=== PATIENT | male | born 1950 | race Caucasian/White ===

== ENCOUNTER → 2017-01-04 | Day surgery (SDC) | payer BC ==
[2016-12-21 14:45] VITALS: BMI 31.0
--- NOTE | 2016-12-21 15:13 | PAT Medication Instructions ---
Service Date Dec 21, 2016. Current Home Medication List Acetaminophen (Tylenol), 2 TAB PO Q6 PRN for Pain Cholecalciferol (Vitamin D3), 1 TAB PO QAM Multivitamin (Multivitamin), 1 TAB PO QAM Triamcinolone Acet 0.5% (Triamcinolone Acet 0.5%), Unknown Dose TOP DAILY Triamcinolone Acet 0.5% (Aristocort 0.5%), Unknown Dose TOP DAILY Medication Instructions For Your Scheduled Surgery - Hold the following medications 24 hours prior to surgery: Triamcinolone Acet 0.5% (Triamcinolone Acet 0.5%), Unknown Dose TOP DAILY Triamcinolone Acet 0.5% (Aristocort 0.5%), Unknown Dose TOP DAILY - Hold the following medications the morning of surgery: Cholecalciferol (Vitamin D3), 1 TAB PO QAM Multivitamin (Multivitamin), 1 TAB PO QAM - Take the following medications the morning of surgery with a sip of water: Acetaminophen (Tylenol), 2 TAB PO Q6 PRN for Pain (if needed) - Take the following medications as scheduled the night before surgery: Acetaminophen (Tylenol), 2 TAB PO Q6 PRN for Pain (if needed) If you have any questions please call us at [phone] or [phone] or [phone]
--- NOTE | 2016-12-21 16:00 | DIAGNOSTIC IMAGING REPORT ---
TWO VIEW CHEST CLINICAL HISTORY: Preoperative examination. FINDINGS: PA and lateral chest radiographs are compared to study dated 09/20/2015. The heart is top normal in size and there is atherosclerotic calcification of the thoracic aorta. The lungs and pleural spaces are clear. There is no pneumothorax. The bony thorax appears intact. Degenerative change is noted in the thoracic spine. IMPRESSION: No active disease in the chest. Electronically signed by: Ephraim Amezquita M.D. 12/21/2016 3:59 PM Dictated Date/Time: 12/21/2016 3:58 PM
[2016-12-21 16:01] LABS: BASO % 0.4 %; BASO ABS # 0.03 K/uL (0-0.2); COMPLETE YES; EOS % 3.7 %; HEMATOCRIT 42.4 % (42-52); IG% 0.3 %; LYMPH % 24.8 %; MEAN CELL VOLUME 88.3 fL (80-100); MEAN CORPUSCULAR HEMOGLOBIN 30.6 pg (25-34); MEAN CORPUSCULAR HGB CONC 34.7 g/dl (32-36); MEAN PLATELET VOLUME 9.3 fL (7.4-10.4); MONO % 9.1 %; NEUT % 61.7 %; PLATELET COUNT 270 K/uL (130-400); WHITE BLOOD COUNT 7.25 K/uL (4.8-10.8)
[2016-12-21 16:09] LABS: BUN/CREATININE RATIO 11.3 (10-20); CALCIUM 9.5 mg/dl (8.5-10.1); CREATININE 1.3 mg/dl (0.60-1.40); POTASSIUM 4.4 mmol/L (3.5-5.1)
[~2017-01-04] VITALS: Ht 175.3 cm; Wt 97.3 kg
[~2017-01-04] MED LIST: ACET-1256 PO; ATROPINE SULFATE 0.1 MG/ML 5ML SYR IV PRN; BACITRACIN 50000 UNIT VIAL ONE; BUPIVACAINE 0.5 % 5 MG/1 ML MPF 30ML VIAL ONE; CEFAZOLIN SOD 1 GM VIAL ONE; CHOL500021 PO; DEXAMETHASONE SOD INJ 4 MG/ML VIAL ONE; EpHEDrine SULFATE INJ 50 MG/ML AMP IV PRN; FENTANYL CITRATE INJ 50 MCG/1 ML 2 ML VIAL ONE; FLUMAZENIL 0.1 MG/1 ML 10 ML VIAL IV PRN; GLYCOPYRROLATE INJ 0.2 MG/ML VIAL ONE; LABETALOL HCL IV 5 MG/ML 20ML IV PRN; LACTATED RINGER'S 1000ML 1,000 ML IV SCH; LIDOCAINE HCL 2% 2 ML VIAL (20MG/ML) ONE; MIDAZOLAM HCL 1 MG/ML 2ML VIAL ONE; MULT-506 PO; MoRPHine SULFATE 4 MG/ML 1 ML CARP\\VIAL IV PRN; NALOXONE HCL 0.4 MG/1 ML VIAL/CARP IV PRN; NEOSTIGMINE METHYLSULFATE 5 MG/5 ML SYR ONE; ONDANSETRON INJ 2 MG/ML 2 ML VIAL IV PRN; ONDANSETRON INJ 2 MG/ML 2 ML VIAL ONE; OXYC-57 PO; OXYCODONE/ACETAMINOPHEN 5-325 TAB PO PRN; PROMETHAZINE HCL INJ 12.5 MG in SODIUM CHLORIDE 0.9% 50ML 50 ML IV PRN; PROPOFOL IV EMULSION 10 MG/ML 20 ML VIAL IV ONE; ROCURONIUM BROMIDE 10 MG/ML 5 ML VIAL ONE; SUCCINYLCHOLINE 100MG/5ML SYR IV ONE; TRIA0.5O TOP; [UNRECOGNIZED DRUG - CODE] TOP
[2017-01-04 11:02] VITALS: BP 182/89; PULSE 68; TEMP 36.5; O2SAT 98; BMI 31.0
[2017-01-04 11:12] VITALS: BP 182/89; TEMP 36.5; O2SAT 98; Ht 175.3 cm; Wt 97.3 kg
--- NOTE | 2017-01-04 12:03 | History & Physical Bridge Note ---
H&P Re-Evaluation Bridge Note: I have examined the patient, reviewed the History & Physical and in the interval since the performance of the History & Physical I have noted the following changes of clinical significance: No changes noted pt marked at bedside
--- NOTE | 2017-01-04 12:10 | Discharge Instructions ---
Discharge Instructions Date of Service Jan 04, 2017. Visit Reason for Visit: Umbilical Hernia Discharge Discharge Diagnosis / Problem: repair of hernia Discharge Goals Goal(s): Decrease discomfort Activity Recommendations Activity Limitations: as noted below Lifting Limitations: no more than 10 pounds Shower/Bathe: tomorrow Driving or Machine Use: in 1 week Anesthesia . Post Anesthesia Instructions: If you have had General Anesthesia or IV Sedation: * Do not drive today. * Resume driving when surgeon permits. * Do not make important decisions or sign legal documents today. * Call surgeon for: 1. Temperature elevations greater than 101 degrees F. 2. Uncontrollable pain. 3. Excessive bleeding. 4. Persistent nausea and vomiting. 5. Medication intolerance (nausea, vomiting or rash). * For nausea and vomiting use only clear liquids such as: tea, soda, bouillon until nausea subsides, then gradually increase diet as tolerated. * If you have any concerns or questions, call your surgeon's office. If physician is unavailable and it is an emergency, call 911 or go to the nearest emergency room. . Instructions / Follow-Up Instructions / Follow-Up Dr. Darby in 1 week, call [phone] if you have any questions or need to schedule an appt Diet Recommendations Recommended Home Diet: no limitations Pending Studies Studies pending at discharge: no Medical Emergencies . Who to Call and When: Medical Emergencies: If at any time you feel your situation is an emergency, please call 911 immediately. . Non-Emergent Contact Non-Emergency issues call your: Surgeon Call Non-Emergent contact if: you have a fever, temperature is above 101.5, your pain is not controlled, wound has increased drainage, wound has increased redness, you have any medication questions . . "Provider Documentation" section prepared by Ryan Sharma. . [place] Drug Monitoring Program Search Results: no issues identified
--- NOTE | 2017-01-04 13:27 | [facility] Operative Report ---
Operative Report Operative Date Jan 04, 2017. Pre-Operative Diagnosis Recurrent incisional hernia Post-Operative Diagnosis same as pre-operative Procedure(s) Performed Laparoscopic Incisional Hernia Repair with 10cm SurgiMesh(defect hol[place] [address] Darby Pipe Maker Surgeon(s) Rayn Sharma PA-C Estimated Blood Loss 5ml Findings defect holland 3 cm Specimens none per surgeon I attest to the content of the Intraoperative Record and any orders documented therein. Any exceptions are noted below.
--- NOTE | 2017-01-04 13:56 | OPERATIVE REPORT ---
DATE OF OPERATION: 01/04/2017 PREOPERATIVE DIAGNOSIS: Recurrent incisional hernia. POSTOPERATIVE DIAGNOSIS: Same with defect approximately 3 cm. PROCEDURE: Laparoscopic repair with 10 cm Surgimesh. SURGEON: Dr. Darby. MANAGER MINING: Neftali Sharma PA-C. SUMMARY: The patient was brought into the operating room theater. The abdomen was shaved and prepped with Betadine scrubbing solution and properly draped. We made a small transverse incision below the umbilicus sufficient enough to place a Veress needle followed by CO2 followed by 5 mm trocar. Point of entry inspected and no injury identified. The patient had a previous transverse incision on the supraumbilical area that was done approximately a year ago when he came in with an incarcerated ischemic omentum where a previous trocar site from a robotic surgery. At that time we resected the omentum, but obviously not put any mesh with the repair and he had a recurrence. At this point, we placed a 5 mm right upper quadrant port and we were able then to visualize the abdominal wall. There was no real incarcerated of any fatty tissue in that area. We did identify the patient's left lower quadrant had probably some omentum pulled through with a 5 mm trocar, but this was not related. We would take that down at the end with some electrocautery. Once the defect was delineated more, we marked it from the skin edge with a spinal needle and had a defect about 3 cm transverse plus we had 4 cm incorporating the 5 mm trocar that we placed initial site. Therefore, we elected a piece of Surgimesh 10 cm. Prior to doing that, I made sure that we freed up the infraumbilical area some from the umbilical ligament. Once we were able then to free this up, we placed the mesh intraabdominally elevated essentially at its nylon suture centrally located in the defect then used a ProTack to circumferentially tack this to the abdominal wall with about 30 tacks. Prior to completing this, we then apical north, south, east and west we placed 2-0 nylon suture typing to the fascial area incorporating the mesh in the abdominal wall. Once the repair appeared to be secure we took individual trocars out, last we took the left lower quadrant trocar out pretty much prior to removing the whole pneumoperitoneum. Wounds were closed with Monocryl. Steri-Strips applied. The procedure was tolerated well by the patient. Estimated blood loss approximately 5 mL. The patient was taken to recovery room in good condition. I attest to the content of the Intraoperative Record and any orders documented therein. Any exception s are noted below.
[2017-01-04] MEDS: FENTANYL CITRATE INJ 50 MCG/1 ML 2 ML VIAL IV PRN ×4 (14:02→14:17)
--- NOTE | 2017-01-04 14:25 | Anesthesiology Progress Note ---
Anesthesia Post Op Note Date & Time Jan 04, 2017 at 14:25 Vital Signs Pain Intensity: 5 Vital Signs Past 12 Hours Date Time Temp Pulse Resp B/P (MAP) Pulse Ox O2 Delivery O2 Flow Rate FiO2 01/04/17 14:20 69 18 165/90 95 Room Air 01/04/17 14:10 69 18 149/80 95 Room Air 01/04/17 14:00 68 18 149/80 100 Oxymask 10 01/04/17 13:50 74 18 171/80 96 Oxymask 10 01/04/17 13:43 36.4 64 18 188/105 97 Oxymask 10 01/04/17 11:12 36.5 18 182/89 (120) 98 Room Air 01/04/17 11:02 36.5 68 18 182/89 (120) 98 Room Air Notes Mental Status: alert / awake / arousable, participated in evaluation Pt Amnestic to Procedure: Yes Nausea / Vomiting: adequately controlled Pain: adequately controlled Airway Patency, RR, SpO2: stable & adequate BP & HR: stable & adequate Hydration State: stable & adequate Anesthetic Complications: no major complications apparent
[2017-01-04 14:45] VITALS: BP 163/77; PULSE 67; TEMP 36.5; O2SAT 97
[2017-01-04 15:15] VITALS: BP 154/74; PULSE 63; O2SAT 98
[2017-01-04 15:45] VITALS: BP 166/79; PULSE 74; TEMP 37; O2SAT 100
== END | disposition home or self-care (01) ==
LOC: C.ACU 10:38
PROVIDERS: ATTEND Surgery
DX: K43.2 Incisional hernia without obstruction or gangrene (principal); K42.9 Umbilical hernia without obstruction or gangrene; Z85.46 Personal history of malignant neoplasm of prostate; Z90.79 Acquired absence of other genital organ(s); Z83.3 Family history of diabetes mellitus